=== PATIENT | female | born 1955 | race African-American/Black ===

== ENCOUNTER 2023-03-20 20:07 | Inpatient (IN) | payer OTHER ==
[2023-03-20] MEDS ORDERED: Ondansetron PF 4 MG/2 ML Vial ONE (21:52)
[2023-03-20] MEDS ORDERED: Ketorolac Tromethamine 30 MG/ML VIAL ONE (21:52)
[2023-03-20 22:00] LABS: Bacteria/HPF 2+ HPF (None Seen); Bilirubin Negative (Negative); Blood, Urine Negative (Negative); CAUTI Indications for Culture < 2yrs of age; Clarity Turbid (Clear); Glucose, Urine (Dipstick) Normal (Negative); Ketone, Urine Negative (Negative); Leukocyte 500 Leu/uL (Negative); Nitrite Negative (Negative); Protein, Urine (Dipstick) 70 mg/dL (Neg-Trace); RBC/HPF 0-3 HPF (0-3); Renal Epithelial 0-3 HPF (None Seen); Specific Gravity, Urine 1.026 (1.002-1.036); Urobilinogen Normal mg/dL (Less than 2); WBC/HPF Greater than 50 HPF (0-3); Yeast-Budding Rare HPF (None Seen)
[2023-03-20 22:03] LABS: Urine Culture Reflex Yes Yes
[2023-03-20 22:23] LABS: #Eosinphils 0.1 thou/uL (0.0-0.7); #Monocytes 0.8 thou/uL (0.11-0.59); #Neutrophils 5.7 thou/uL (1.40-6.50); %Basophils 0.5 % (0.0-1.0); %Eosinophils 0.9 % (0.0-10.0); %Lymphocytes 15.7 % (21.0-51.0); %Monocytes 10.4 % (0.0-10.0); %Neutrophils 71.9 % (42.0-75.0); Hemoglobin 12.4 g/dL (12.0-16.0); Mean Corpuscular HGB CONC 33.5 g/dL (32.0-36.0); Mean Corpuscular Hemoglobin 27.8 pg (27.0-31.0); Mean Platelet Volume 10.6 fL (7.4-10.4); Platelet Count 484 10x3/uL (130-400); RBC Distribution Width 15.7 % (11.5-14.5); Red Blood Cell (RBC) Count 4.46 mill/uL (4.20-5.40); White Blood Cell (WBC) Count 7.9 10x3/uL (4.8-10.8)
[2023-03-20 22:49] LABS: ALT (SGPT) 10 U/L (8-55); AST (SGOT) 16 U/L (5-34); Albumin 4.6 g/dL (3.4-4.8); Alkaline Phosphatase 95 U/L (40-110); Anion Gap 19 mmol/L (10-20); BUN (Urea Nitrogen) 34 mg/dL (9.8-20.1); Bilirubin, Total 0.4 mg/dL (0.2-1.2); Calc. Creatinine Clearance 0 mL/min (70-130); Calcium 9.9 mg/dL (7.8-10.44); Carbon Dioxide 20 mmol/L (23-31); Chloride 100 mmol/L (98-107); Estimated GFR 22; Globulin 3.8 g/dL (2.4-3.5); Glucose 123 mg/dL (80-115); Lipase 197 U/L (8-78); Protein, Total 8.4 g/dL (5.8-8.1); Sodium 136 mmol/L (136-145); Troponin I 0.025 ng/mL (< 0.028)
[2023-03-20] MEDS ORDERED: Famotidine/PF 20 mg/2ml Vial ONE (23:01)
[2023-03-20] MEDS ORDERED: Magnesium 2 GM/50 ML BAG (IN WATER) ONE (23:55)
[2023-03-20] MEDS ORDERED: Potassium Chloride 20 MEQ TAB ONE (23:55)
[2023-03-21] MEDS ORDERED: Acetaminophen 325 MG TAB PO PRN (00:49)
[2023-03-21] MEDS ORDERED: Calcium Carbonate 500 MG ChewTAB PO PRN (00:49)
[2023-03-21] MEDS ORDERED: Electrolyte Replacement Protocol 1 EACH FS SCH (00:51)
[2023-03-21] MEDS ORDERED: Lactated Ringer's 1,000 ML IV SCH (01:00)
[2023-03-21] MEDS ORDERED: Nitrofurantoin Macrocrystal 50 MG CAP PO SCH (01:15)
[2023-03-21] MEDS ORDERED: Pregabalin 75 MG CAP PO SCH ×2 (01:30→09:00)
[2023-03-21] MEDS: Ondansetron ODT 4 MG TAB PO PRN ×2 (02:46→14:27)
[2023-03-21] MEDS: cefTRIAXone\\ROCEPHIN 1 GM in Sodium Chloride 0.9% 100 ML IVPB SCH (02:48)
[2023-03-21 02:54] VITALS: BMI 30.1
[2023-03-21] MEDS ORDERED: diphenhydrAMINE 25 MG CAP PO SCH (04:45)
[2023-03-21 07:33] LABS: #Eosinphils 0.1 thou/uL (0.0-0.7); #Neutrophils 4.9 thou/uL (1.40-6.50); %Basophils 0.1 % (0.0-1.0); %Eosinophils 1.5 % (0.0-10.0); %Lymphocytes 14.7 % (21.0-51.0); %Monocytes 14.2 % (0.0-10.0); %Neutrophils 68.9 % (42.0-75.0); Hematocrit 32.7 % (36.0-47.0); Hemoglobin 10.7 g/dL (12.0-16.0); Mean Corpuscular HGB CONC 32.7 g/dL (32.0-36.0); Mean Corpuscular Hemoglobin 27.7 pg (27.0-31.0); Mean Corpuscular Volume 84.7 fl (78.0-98.0); Mean Platelet Volume 10.1 fL (7.4-10.4); RBC Distribution Width 15.7 % (11.5-14.5); Red Blood Cell (RBC) Count 3.86 mill/uL (4.20-5.40); White Blood Cell (WBC) Count 7.1 10x3/uL (4.8-10.8)
[2023-03-21 07:50] LABS: Anion Gap 15 mmol/L (10-20); BUN (Urea Nitrogen) 27 mg/dL (9.8-20.1); Calc. Creatinine Clearance 42 mL/min (70-130); Calcium 8.9 mg/dL (7.8-10.44); Carbon Dioxide 22 mmol/L (23-31); Chloride 104 mmol/L (98-107); Estimated GFR 36; Glucose 107 mg/dL (80-115); Potassium 2.7 mmol/L (3.5-5.1); Sodium 138 mmol/L (136-145); Uric Acid 8.1 mg/dL (2.6-6.0)
[2023-03-21 08:21] LABS: Platelet Count 382 10x3/uL (130-400)
[2023-03-21] MEDS: Potassium Chloride 20 MEQ TAB PO SCH ×2 (10:32→14:09)
[2023-03-21] MEDS ORDERED: Fluconazole 100 MG TAB PO SCH (11:45)
[2023-03-21] MEDS: Lactated Ringer's 1,000 ML IV SCH (14:08)
[2023-03-21 17:45] LABS: Magnesium 1.7 mg/dL (1.6-2.6); Potassium 3.4 mmol/L (3.5-5.1)
[2023-03-21] MEDS ORDERED: Magnesium 2 GM/50 ML(in water) 2 GM in Premix Bag 1 BAG IVPB SCH (20:00)
[2023-03-21] MEDS ORDERED: Potassium Chloride 20 MEQ TAB PO SCH (20:00)
[2023-03-21] MEDS: Famotidine 20 MG TAB PO SCH (20:57)
[2023-03-21] MEDS: Pregabalin 75 MG CAP PO SCH (20:57)
[2023-03-21] MEDS: DULoxetine 30 MG CAP PO SCH (20:58)
[2023-03-22] MEDS: cefTRIAXone\\ROCEPHIN 1 GM in Sodium Chloride 0.9% 100 ML IVPB SCH (00:10)
[2023-03-22] MEDS ORDERED: diphenhydrAMINE 25 MG CAP PO SCH (00:15)
[2023-03-22 00:36] LABS: Potassium 3.3 mmol/L (3.5-5.1)
[2023-03-22] MEDS: Lactated Ringer's 1,000 ML IV SCH ×3 (03:11→21:09)
[2023-03-22 06:07] LABS: #Eosinphils 0.1 thou/uL (0.0-0.7); #Monocytes 0.9 thou/uL (0.11-0.59); %Basophils 0.5 % (0.0-1.0); %Eosinophils 2.2 % (0.0-10.0); %Lymphocytes 14.1 % (21.0-51.0); %Monocytes 14.8 % (0.0-10.0); %Neutrophils 68.1 % (42.0-75.0); Hematocrit 30.7 % (36.0-47.0); Mean Corpuscular HGB CONC 32.6 g/dL (32.0-36.0); Mean Corpuscular Hemoglobin 28.2 pg (27.0-31.0); Mean Corpuscular Volume 86.5 fl (78.0-98.0); Mean Platelet Volume 10.5 fL (7.4-10.4); Platelet Count 366 10x3/uL (130-400); RBC Distribution Width 16.2 % (11.5-14.5); Red Blood Cell (RBC) Count 3.55 mill/uL (4.20-5.40); White Blood Cell (WBC) Count 5.8 10x3/uL (4.8-10.8)
[2023-03-22 06:32] LABS: ALT (SGPT) 7 U/L (8-55); AST (SGOT) 12 U/L (5-34); Albumin 3.7 g/dL (3.4-4.8); Alkaline Phosphatase 73 U/L (40-110); Anion Gap 13 mmol/L (10-20); BUN (Urea Nitrogen) 14 mg/dL (9.8-20.1); Bilirubin, Total 0.3 mg/dL (0.2-1.2); Calc. Creatinine Clearance 73 mL/min (70-130); Calcium 8.9 mg/dL (7.8-10.44); Carbon Dioxide 21 mmol/L (23-31); Chloride 108 mmol/L (98-107); Estimated GFR 70; Globulin 2.9 g/dL (2.4-3.5); Glucose 137 mg/dL (80-115); Magnesium 1.9 mg/dL (1.6-2.6); Protein, Total 6.6 g/dL (5.8-8.1); Sodium 138 mmol/L (136-145)
[2023-03-22] MEDS ORDERED: Magnesium 2 GM/50 ML(in water) 2 GM in Premix Bag 1 BAG IVPB SCH (08:00)
[2023-03-22] MEDS ORDERED: Potassium Chloride 20 MEQ TAB PO SCH (08:00)
[2023-03-22] MEDS: Senokot S 8.6-50 MG TAB PO PRN (08:46)
[2023-03-22] MEDS: Pregabalin 75 MG CAP PO SCH ×2 (08:47→21:08)
[2023-03-22] MEDS: Allopurinol 300 MG TAB PO SCH (08:47)
[2023-03-22] MEDS: Aspirin 81 mg Enteric Coated Tablet PO SCH (08:48)
[2023-03-22] MEDS: Fluconazole 100 MG TAB PO SCH (08:48)
[2023-03-22] MEDS: Amlodipine 5 MG TAB PO SCH (08:48)
[2023-03-22] MEDS: NIFEdipine XL 30 MG TAB PO SCH (08:48)
[2023-03-22] MEDS: DULoxetine 30 MG CAP PO SCH (21:08)
[2023-03-22] MEDS: Famotidine 20 MG TAB PO SCH (21:09)
[2023-03-23] MEDS: cefTRIAXone\\ROCEPHIN 1 GM in Sodium Chloride 0.9% 100 ML IVPB SCH (00:46)
[2023-03-23 06:13] LABS: #Eosinphils 0.2 thou/uL (0.0-0.7); #Monocytes 0.8 thou/uL (0.11-0.59); #Neutrophils 4.7 thou/uL (1.40-6.50); %Basophils 0.6 % (0.0-1.0); %Eosinophils 2.4 % (0.0-10.0); %Lymphocytes 13.5 % (21.0-51.0); %Monocytes 12.4 % (0.0-10.0); %Neutrophils 70.5 % (42.0-75.0); Hematocrit 30.5 % (36.0-47.0); Hemoglobin 9.5 g/dL (12.0-16.0); Mean Corpuscular HGB CONC 31.1 g/dL (32.0-36.0); Mean Corpuscular Hemoglobin 28.3 pg (27.0-31.0); Mean Platelet Volume 10.6 fL (7.4-10.4); Platelet Count 372 10x3/uL (130-400); RBC Distribution Width 16.9 % (11.5-14.5); Red Blood Cell (RBC) Count 3.36 mill/uL (4.20-5.40); White Blood Cell (WBC) Count 6.6 10x3/uL (4.8-10.8)
[2023-03-23 06:14] LABS: Mean Corpuscular Volume 90.8 fl (78.0-98.0)
[2023-03-23 06:33] LABS: Anion Gap 14 mmol/L (10-20); BUN (Urea Nitrogen) 12 mg/dL (9.8-20.1); Calc. Creatinine Clearance 67 mL/min (70-130); Calcium 8.7 mg/dL (7.8-10.44); Carbon Dioxide 18 mmol/L (23-31); Chloride 107 mmol/L (98-107); Estimated GFR 63; Glucose 159 mg/dL (80-115); Magnesium 1.7 mg/dL (1.6-2.6); Potassium 4.2 mmol/L (3.5-5.1); Sodium 135 mmol/L (136-145)
[2023-03-23] MEDS ORDERED: Magnesium 2 GM/50 ML(in water) 2 GM in Premix Bag 1 BAG IVPB SCH (08:00)
[2023-03-23] MEDS: Amlodipine 5 MG TAB PO SCH (08:27)
[2023-03-23] MEDS: Aspirin 81 mg Enteric Coated Tablet PO SCH (08:27)
[2023-03-23] MEDS: Allopurinol 300 MG TAB PO SCH (08:27)
[2023-03-23] MEDS: Fluconazole 100 MG TAB PO SCH (08:27)
[2023-03-23] MEDS: NIFEdipine XL 30 MG TAB PO SCH (08:28)
[2023-03-23] MEDS: Pregabalin 75 MG CAP PO SCH (08:35)
[2023-03-23] MEDS: Senokot S 8.6-50 MG TAB PO PRN (08:36)
[2023-03-23 09:14] VITALS: BP 134/73; TEMP 97.5
[2023-03-23] MEDS: Lactated Ringer's 1,000 ML IV SCH (10:45)
== END 2023-03-23 15:22 | disposition home or self-care (01) | DRG 690 ==
LOC: ERS 20:07 → SURG B 03-21 00:51 → OBSVTOIN 03-22 13:21
PROVIDERS: ADMIT Student in an Organized Health Care Education/Training Program; ATTEND Internal Medicine
DX: N39.0 Urinary tract infection, site not specified (principal); N17.9 Acute kidney failure, unspecified; E87.6 Hypokalemia; M25.571 Pain in right ankle and joints of right foot; E11.9 Type 2 diabetes mellitus without complications; I10 Essential (primary) hypertension; E78.00 Pure hypercholesterolemia, unspecified; R16.0 Hepatomegaly, not elsewhere classified; Z90.710 Acquired absence of both cervix and uterus; Z90.49 Acquired absence of other specified parts of digestive tract; Z98.890 Other specified postprocedural states; Z88.5 Allergy status to narcotic agent; Z88.0 Allergy status to penicillin; Z88.8 Allergy status to other drugs, medicaments and biological substances; Z82.49 Family history of ischemic heart disease and other diseases of the circulatory system; Z79.84 Long term (current) use of oral hypoglycemic drugs; Z79.899 Other long term (current) drug therapy
CPT/HCPCS: 36415; 36416; 74176; 80048; 80053; 81001; 83690; 83735; 84484; 84550; 85025; 87086; 93005; 96361; 96365; 96366; 96375; 96376; G0378; J0696; J1885; J2405; J3475; J3490; J7120; Q0162; S0028

== ENCOUNTER 2025-03-24 18:21 | Emergency (ER) | payer OTHER ==
[2025-03-24 18:57] LABS: #Basophils Less than 0.03 10x3/uL (0.0-0.2); #Eosinophils 0.35 10x3/uL (0.0-0.7); #Monocytes 0.81 10x3/uL (0.11-0.59); #Neutrophils 4.12 10x3/uL (1.40-6.50); %Basophils 0.2 % (0.0-1.0); %Eosinophils 5.3 % (0.0-10.0); %Lymphocytes 18.8 % (21.0-51.0); %Monocytes 12.4 % (0.0-10.0); %Neutrophils 62.8 % (42.0-75.0); Hematocrit 27.9 % (36.0-47.0); Hemoglobin 9.1 g/dL (12.0-16.0); Mean Corpuscular Hemoglobin 28.3 pg (27.0-31.0); Mean Corpuscular Volume 86.6 fL (78.0-98.0); Platelet Count 317 10x3/uL (130-400); Red Blood Cell (RBC) Count 3.22 mill/uL (4.20-5.40); White Blood Cell (WBC) Count 6.55 10x3/uL (4.8-10.8)
[2025-03-24 19:11] LABS: ALT (SGPT) 9 U/L (Less than 34); AST (SGOT) 13 U/L (11-34); Albumin 3.6 g/dL (3.1-4.5); Alkaline Phosphatase 86 U/L (40-110); Anion Gap 17 mmol/L (10-20); BUN (Urea Nitrogen) 40 mg/dL (9.8-20.1); Bilirubin, Total 0.3 mg/dL (0.3-1.2); CK (CPK) 59 U/L (29-168); Calc. Creatinine Clearance 0 mL/min (70-130); Calcium 9.1 mg/dL (7.8-10.44); Carbon Dioxide 25 mmol/L (23-31); Chloride 103 mmol/L (98-107); Globulin 3.1 g/dL (2.4-3.5); Glucose 154 mg/dL (83-110); Lipase 69 U/L (8-78); Magnesium 1.6 mg/dL (1.6-2.6); Potassium 4.0 mmol/L (3.5-5.1); Sodium 141 mmol/L (136-145)
[2025-03-24 19:14] LABS: INR-International Normal Ratio 1.1; PTT 30.1 sec (22.9-36.1); Prothrombin Time 14.0 sec (12.0-14.7)
[2025-03-24 19:33] LABS: Actual Bicarbonate (HCO3v) 22.0 mEq/L (22-28); Base Excess -2.1 mEq/L (-2.0 to +3.0); Calcium, Ionized (venous) 1.11 mmol/L (1.16-1.32); Chloride (VBG) 100 mmol/L (98-106); Hematocrit-VBG 30 % (36.0-47.0); Hemoglobin (Hb) 10.3 g/dL (11.7-16.1); Potassium (VBG) 3.79 mmol/L (3.70-5.30); Sodium 130 mmol/L (133-146)
[2025-03-24 22:34] LABS: Bacteria/HPF None Seen HPF (None Seen); CAUTI Indications for Culture Dysuria,urgency,freq; Glucose, Urine (Dipstick) Normal (Negative); Leukocyte 25 Leu/uL (Negative); Protein, Urine (Dipstick) 30 mg/dL (Neg-Trace); RBC/HPF 0-3 HPF (0-3); Specific Gravity, Urine 1.015 (1.002-1.036); WBC/HPF 0-3 HPF (0-3)
[2025-03-24 22:37] LABS: Urine Culture Reflex No No
== END 2025-03-25 01:21 | disposition home or self-care (01) ==
LOC: ERS 18:21
DX: R41.82 Altered mental status, unspecified (principal); E86.0 Dehydration; I10 Essential (primary) hypertension; E11.9 Type 2 diabetes mellitus without complications; I25.2 Old myocardial infarction; E78.00 Pure hypercholesterolemia, unspecified; Z79.899 Other long term (current) drug therapy; Z79.82 Long term (current) use of aspirin; Z79.84 Long term (current) use of oral hypoglycemic drugs
CPT/HCPCS: 36416; 70450; 71045; 80053; 81001; 82550; 82805; 83605; 83690; 83735; 83880; 84484; 85025; 85610; 85730; 93005